=== PATIENT | female | born 1990 | race Two or more races ===

== ENCOUNTER 2022-01-10 09:11 | Emergency (ER) | payer OTHER ==
[2022-01-10 09:27] VITALS: BP 108/75; PULSE 88; TEMP 98; BMI 25.0
[2022-01-10] MEDS ORDERED: KETOROLAC TROMETHAMINE 30 MG/1 ML VIAL IM ONE (09:54)
== END 2022-01-10 11:10 | disposition home or self-care (01) ==
LOC: JERFT 09:11
PROC: 3E023GC Introduction of Other Therapeutic Substance into Muscle, Percutaneous Approach (ICD-10-PCS; principal; 2022-01-10)
DX: M54.89 Other dorsalgia (principal); V47.5XXA Car driver injured in collision with fixed or stationary object in traffic accident, initial encounter
CPT/HCPCS: 84703; 99284-25